=== PATIENT | female | born 2000 | race Caucasian/White ===

== ENCOUNTER 2019-01-08 15:25 | Emergency (ER) | payer OTHER, BC, SELFPAY ==
[2019-01-08 15:38] VITALS: BP 120/82; PULSE 88; RESP 18; TEMP 36.7; O2SAT 100; BMI 28.1
--- NOTE | 2019-01-08 17:43 | DI.RAD.S_ITS ---
PROCEDURE: XR HAND RT 2V INDICATIONS: injury at work TECHNIQUE: 2 views of the hand(s) acquired. COMPARISON: None. FINDINGS: Bones: No fractures or dislocations. Carpal bones are normally aligned. No suspicious bony lesions. Soft tissues: No suspicious soft tissue calcifications. IMPRESSION: No fracture. No osseous lesion. If there are persistent symptoms or clinical suspicion for pathology, then repeat radiographs or advanced imaging (CT, MRI or bone scan) should be considered for further evaluation. Dictated by: Essence Justice MD, PhD on 01/08/2019 at 18:16 Approved by: Essence Justice MD, PhD on 01/08/2019 at 18:17
[2019-01-08 20:50] VITALS: BP 131/96; PULSE 89; RESP 15; O2SAT 100
--- NOTE | 2019-01-08 20:59 | ED_ITS ---
HPI - Extremity Injury (Upper) <SHIRLEY Jain - Last Filed: 01/08/19 21:16> General Chief Complaint: Extremity Injury, Upper Stated Complaint: righthand injury at work Time Seen by Provider: 01/08/19 20:40 Source: patient Mode of arrival: ambulatory Limitations: no limitations History of Present Illness HPI narrative: Patient is a 18-year-old female smoker with history of ADHD who presents with a chief complaint of right hand pain. 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 She complains of pain and swelling and is concerned about a fracture. She denies any numbness or tingling. She applied ice. She has not taken hsoi-kwv-oewgyvm medications for pain. She has no previous injuries to the area. Patient states that she was sent here from the walk-in clinic, and she is not sure why. Related Data Home Medications Medication Instructions Recorded Confirmed dextroamphetamine-amphetamine 20 mg PO QDAY #0 03/31/13 [Adderall] Allergies Allergy/AdvReac Type Severity Reaction Status Date / Time amoxicillin Allergy Severe Difficulty Verified 01/08/19 15:44 Breathing PENICILLIN Allergy Intermediate migraine Uncoded 01/08/19 15:43 Review of Systems <SHIRLEY Jain - Last Filed: 01/08/19 21:16> Review of Systems GENERAL: Denies chills, fatigue, malaise, fever, sweats. HEENT: Denies sinus pain, ear pain, sore throat, difficulty swallowing, dizziness. RESPIRATORY: Denies dyspnea, cough, wheezing, hemoptysis, sputum. CARDIOVASCULAR: Denies chest pain, palpitations, orthopnea, edema, GASTROINTESTINAL: Denies nausea, vomiting, abdominal pain, diarrhea, constipation, melena. : Denies dysuria, frequency, incontinence, hematuria, urinary retention. MUSCULOSKELETAL: See HPI SKIN: See HPI NEUROLOGIC: Denies weakness, headache, numbness, change in speech, confusion, seizures, incoordination. PSYCHIATRIC: No concerning psychosocial issues. 12 point review of systems is negative except for those stated above PFSH <SHIRLEY Jain - Last Filed: 01/08/19 21:16> Social History Smoking Status: Current every day smoker Social History Smoking Status: Current every day smoker Exam <TOM Jain-CANDY - Last Filed: 01/08/19 21:16> Narrative Exam Narrative: GENERAL: This is a well-nourished, well-developed patient, no acute distress HEAD: Atraumatic. Normocephalic. No temporal or scalp tenderness. EYES: Pupils equal round and reactive. Extraocular motions intact. No scleral icterus. No injection or drainage. ENT: Nose without bleeding, purulent drainage or septal hematoma. Throat without erythema, tonsillar hypertrophy or exudate. Uvula midline. Airway patent. NECK: Trachea midline. No JVD or lymphadenopathy. Supple, nontender, no meningeal signs. CARDIOVASCULAR: Regular rate and rhythm RESPIRATORY: No cough. No increased respiratory effort. EXTREMITIES: Pain to palpation of right hand. Strength of hands equal bilaterally. Capillary refill less than 2 sec all fingers right hand. BACK: Nontender without deformity or crepitance. No flank tenderness. NEURO: AOx3. SKIN: 3 cm area of ecchymosis noted on the dorsal aspect of right hand. Initial Vital Signs Initial Vital Signs: Vital Signs Temperature 98.1 F 01/08/19 15:38 Pulse Rate 88 01/08/19 15:38 Respiratory Rate 18 01/08/19 15:38 Blood Pressure 120/82 01/08/19 15:38 Pulse Oximetry 100 01/08/19 15:38 <Keshia Lang DO - Last Filed: 01/09/19 02:30> Initial Vital Signs Initial Vital Signs: Vital Signs Temperature 98.1 F 01/08/19 15:38 Pulse Rate 88 01/08/19 15:38 Respiratory Rate 18 01/08/19 15:38 Blood Pressure 120/82 01/08/19 15:38 Pulse Oximetry 100 01/08/19 15:38 Course <TOM Jain-BC - Last Filed: 01/08/19 21:16> Orders Ordered: ED Orders 01/08/19 17:43 XR hand RT 2V Stat Vital Signs - 8 hr 01/08/19 20:50 Pulse Rate 89 Respiratory Rate 15 Blood Pressure [Left Arm] 131/96 H Pulse Oximetry 100 <Keshia Lang DO - Last Filed: 01/09/19 02:30> Orders Ordered: ED Orders 01/08/19 17:43 XR hand RT 2V Stat Vital Signs - 8 hr 01/08/19 20:50 Pulse Rate 89 Respiratory Rate 15 Blood Pressure [Left Arm] 131/96 H Pulse Oximetry 100 [facility] - Extremity Injury (Upper) <RAGHAVENDRA Jain - Last Filed: 01/08/19 21:16> Imaging Data hand xray : Radiologist's impression: [address] [address] XRay Report Signed Patient: Dayna Buckner [facility]#: [id number] : 2000Acct:[id number] Age/Sex: 18 / FDate of Service: 01/08/19 Loc: ED Accession Number: [id number] Procedure: XR hand RT 2V Ordering Provider: Venita Brandon PROCEDURE: XR HAND RT 2V INDICATIONS: injury at work TECHNIQUE: 2 views of the hand(s) acquired. COMPARISON: None. FINDINGS: Bones: No fractures or dislocations. Carpal bones are normally aligned. No suspicious bony lesions. Soft tissues: No suspicious soft tissue calcifications. IMPRESSION: No fracture. No osseous lesion. If there are persistent symptoms or clinical suspicion for pathology, then repeat radiographs or advanced imaging (CT, MRI or bone scan) should be considered for further evaluation. Dictated by: Essence Justice MD, PhD on 01/08/2019 at 18:16 Approved by: Essence Justice MD, PhD on 01/08/2019 at 18:17 [facility] Narrative Medical decision making narrative: The patient is a 18-year-old female who presents with chief complaint of hand pain after an accident at work. She has a normal hand x-ray, it is noted to have a contusion on the back of her hand. I discussed at length bihl-vvc-lfstwyj medications as needed and able as well as rest ice compression elevation. Patient was offered pain medication in the emergency department, but she states she can take that when she gets home. I discussed follow-up with primary care provider if needed. Patient questions or concerns upon discharge. L and I paperwork filled out. Discharge Plan Departure Patient Disposition: Home Clinical Impression: Contusion Qualifiers: Encounter type: initial encounter Contusion area: hand Laterality: right Qualified Code(s): S60.221A - Contusion of right hand, initial encounter Hand pain Qualifiers: Laterality: right Qualified Code(s): M79.641 - Pain in right hand Discharge Date/Time: 01/08/19 20:55 Interventions: ED Discharge Assessment Last Done: 01/08/19 20:53 Instructions: DI for Contusion, How To Perform RICE (Rest, Ice, Compress, Elevate), DI for Hand Pain Activity Restrictions/Additional Instructions: Your x-ray came back normal today. Please take gqma-kdz-ioeoyfr medications as needed and able. Please use rest ice compression elevation. Please follow up with your primary care provider if needed. Prescriptions: No Action dextroamphetamine-amphetamine [Adderall] 20 MG tablet 20 mg PO QDAY Qty: 0 RF: 0 <Keshia Lang DO - Last Filed: 01/09/19 02:30> Cosrk ED Attending Saraature Attestation: I was immediately available in the department for consultation. Documentation has been reviewed. I agree with assessment and plan.
== END 2019-01-08 20:55 | disposition home or self-care (01) ==
PROVIDERS: Emergency Provider Nurse Practitioner Family
DX: S60.221A Contusion of right hand, initial encounter (principal); W22.8XXA Striking against or struck by other objects, initial encounter; Y99.0 Civilian activity done for income or pay
CPT/HCPCS: 73120; 99282; 99283

== ENCOUNTER → 2021-09-21 09:51 | Outpatient (CLI) | payer OTHER, SELFPAY ==
--- NOTE | 2021-09-21 09:54 | DI.RAD.S_ITS ---
PROCEDURE: XR ANKLE RT MIN 3V INDICATIONS: R ankle pain, injury while running TECHNIQUE: 3 views of the ankle were acquired. COMPARISON: [facility], , ANKLE 3 VIEWS LEFT, 04/01/2016, 12:04. FINDINGS: Bones: No fractures or dislocations. Ankle mortise is normally aligned. No suspicious bony lesions. The talar dome demonstrates no mele abnormality. Soft tissues: No tibiotalar joint effusion. Achilles tendon appears normal. IMPRESSION: Normal plain films. If it would be helpful for clinical management decision making, please consider a dedicated, scheduled ankle MRI for further evaluation (assuming that there is no contraindication). Dictated by: Fernando Mcwilliams M.D. on 09/21/2021 at 9:20 Approved by: Fernando Mcwilliams M.D. on 09/21/2021 at 9:22
== END ==
PROVIDERS: PCP Family Medicine; Referring Provider Physician Assistant; Visit Provider Physician Assistant
DX: S99.911A Unspecified injury of right ankle, initial encounter (principal); M25.571 Pain in right ankle and joints of right foot; X58.XXXA Exposure to other specified factors, initial encounter; Y93.02 Activity, running
CPT/HCPCS: 73610

== ENCOUNTER 2021-11-17 15:06 | Emergency (ER) | payer OTHER, SELFPAY ==
[2021-11-17 15:10] VITALS: BP 151/79; PULSE 89; RESP 22; TEMP 36.9; O2SAT 100
--- NOTE | 2021-11-17 15:13 | DI.RAD.S_ITS ---
PROCEDURE: XR ANKLE RT MIN 3V INDICATIONS: twisting injury TECHNIQUE: 3 views of the ankle were acquired. COMPARISON: [facility], CR, XR ANKLE RT MIN 3V, 09/21/2021, 9:50. [facility], CR, ANKLE 3 VIEWS LEFT, 04/01/2016, 12:04. FINDINGS: Bones: No fractures or dislocations. Ankle mortise is normally aligned. No suspicious bony lesions. Soft tissues: No tibiotalar joint effusion. Achilles tendon appears normal. IMPRESSION: No acute osseous abnormality. Dictated by: Tien Bolton M.D. on 11/17/2021 at 15:47 Approved by: Tien Bolton M.D. on 11/17/2021 at 15:47
--- NOTE | 2021-11-17 15:20 | ED.LOWEXIN ---
HPI - Extremity Injury (Lower) General Chief Complaint: Extremity Injury, Lower Stated Complaint: Fall, Twisted Rt Ankle Time Seen by Provider: 11/17/21 15:20 Source: patient Mode of arrival: Ambulatory History of Present Illness HPI Narrative: 21-year-old woman with no other significant medical issues was running this afternoon and twisted her right ankle with pain at the medial malleolus and difficulty walking. She comes in for further evaluation. She describes no recent fevers, cough, chills, abdominal pain, vomiting, diarrhea. She states she has had prior musculoskeletal injuries but has been healthy recently. Related Data Home Medications Medication Instructions Recorded Confirmed dextroamphetamine-amphetamine 20 20 mg PO QDAY #0 03/31/13 09/21/21 mg tablet (Adderall) Allergies Allergy/AdvReac Type Severity Reaction Status Date / Time amoxicillin Allergy Severe Difficulty Verified 01/08/19 15:44 Breathing PENICILLIN Allergy Intermediate migraine Uncoded 01/08/19 15:43 Review of Systems Review of Systems Narrative: Remainder of complete review of systems is otherwise unremarkable except for that included in the HPI. Patient History Social History Smoking Status: Former smoker Smoking Status: Former smoker alcohol intake frequency: 0-2 drinks per day Substance Use Type: does not use Exam Initial Vital Signs Initial Vital Signs: Vital Signs Temperature 98.4 F 11/17/21 15:10 Pulse Rate 89 11/17/21 15:10 Respiratory Rate 22 11/17/21 15:10 Blood Pressure 151/79 H 11/17/21 15:10 Pulse Oximetry 100 11/17/21 15:10 General: Alert appropriate in no acute distress Respiratory: Able to speak in full sentences, no obvious respiratory distress Skin: No obvious rashes, warm and dry Neurologic: Grossly intact no obvious asymmetries or abnormalities Psych: appropriate insight and affect, cooperative Extremity: Of right ankle is examined there is some minor tenderness along the medial malleolus him into the medial aspect of the ankle and arch of the foot. There is no significant effusions, abrasions or hematoma. Neurovascularly intact. Procedures Orthopedic Splinting/Casting Right ankle: Time of procedure: 16:37 Side: right Lower Extremity Injury Location: ankle Lower Extremity Immobilizer: AirCast Post splinting neuro exam: intact Post splinting vascular exam: intact Placed by: Provider Course Orders Ordered: ED Orders 11/17/21 15:13 XR ankle RT min 3V Stat Vital Signs Vital signs: Vital Signs - 8 hr 11/17/21 15:10 Temperature 98.4 F Pulse Rate 89 Respiratory Rate 22 Blood Pressure 151/79 H Pulse Oximetry 100 MDM - Extremity Injury (Lower) MDM Narrative Medical decision making narrative: Otherwise healthy 21-year-old woman who twisted her ankle while running. She is having difficulty bearing weight and did have some tenderness on the medial malleolus. X-rays are negative. She is placed in an air splint and anticipatory guidance instructions are reviewed. Questions are answered and she is safe for home discharge Discharge Plan Departure Patient Disposition: Home Clinical Impression: Ankle sprain and strain Instructions: DI for Ankle Sprain Activity Restrictions/Additional Instructions: Thank you for coming in today Your x-ray does not show any broken bones. I have given you an air splint to help with supporting your ankle. Using ice keeping the foot elevated as needed the air splint as long as it feels like it is providing support and using 400 mg of ibuprofen (2 tozw-trt-cicglbm pills) and 1 Tylenol every 6 hours can be very helpful in controlling pain. If you have worsening symptoms please feel free to follow-up with your primary care provider or return to the emergency department Prescriptions: No Action dextroamphetamine-amphetamine [Adderall] 20 MG tablet 20 mg PO QDAY Qty: 0 0RF Referrals: Glenn Clark MD [Primary Care Provider] -
== END 2021-11-17 16:31 | disposition home or self-care (01) ==
PROVIDERS: Emergency Provider Emergency Medicine; PCP Family Medicine
DX: S93.401A Sprain of unspecified ligament of right ankle, initial encounter (principal); X50.1XXA Overexertion from prolonged static or awkward postures, initial encounter; Y93.02 Activity, running
CPT/HCPCS: 73610; 99283

== ENCOUNTER → 2023-11-27 09:57 | Outpatient (ROUT) | payer SELFPAY ==
[2023-11-27 10:44] LABS: Influenza A - CEPHEID Flu A NEGATIVE (NEGATIVE); Influenza B - CEPHEID Flu B NEGATIVE (NEGATIVE); Respiratory Syncytial Virus Negative (Negative)
[2023-11-27 12:18] LABS: COVID-19 CEPHEID 4-PLEX PCR Negative (Negative)
== END ==
PROVIDERS: Visit Provider Registered Nurse
DX: R05.9 Cough, unspecified (principal)
CPT/HCPCS: 0241U

== ENCOUNTER 2023-12-23 20:25 | Emergency (ER) | payer OTHER, SELFPAY ==
[2023-12-23 20:36] VITALS: BP 149/102; PULSE 84; RESP 16; TEMP 36.8; O2SAT 98; BMI 25.6
--- NOTE | 2023-12-23 20:44 | DI.RAD.S_ITS ---
PROCEDURE: XR FOOT LT MIN 3V INDICATIONS: pain s/p fall TECHNIQUE: 3 views of the foot were acquired. COMPARISON: [facility], , FOOT 3V LEFT, 04/07/2013, 15:44. FINDINGS: Bones: No fractures or dislocations. No suspicious bony lesions. Soft tissues: No tibiotalar joint effusion. Achilles tendon appears normal. IMPRESSION: No acute bony abnormality. Dictated by: Stevenson Badillo M.D. on 12/23/2023 at 21:44 Approved by: Stevenson Badillo M.D. on 12/23/2023 at 21:45
[2023-12-23] MEDS: IBUPROFEN 400 MG TABLET 800 MG PO (21:38)
--- NOTE | 2023-12-23 22:03 | ED_ITS ---
HPI - Fall General Chief Complaint: Fall Stated Complaint: lt foot, rt hip injury Time Seen by Provider: 12/23/23 21:18 Source: patient Mode of arrival: Ambulatory History of Present Illness HPI Narrative: 23-year-old female here for evaluation of a left foot injury and right hip injury. She states that she tripped and fell down some stairs. States that her left foot got caught up underneath her. She did hit her right hip. Has been ambulatory however has discomfort on the outside of the left foot. She did not hit her head. No loss of consciousness. Related Data Home Medications Medication Instructions Recorded Confirmed dextroamphetamine-amphetamine 20 20 mg PO QDAY ##0 03/31/1309/21/ mg tablet (Adderall) Allergies Allergy/AdvReac Type Severity Reaction Status Date / Time amoxicillin Allergy Severe Difficulty Verified 12/23/23 20:55 Breathing PENICILLIN Allergy Intermediate migraine Uncoded 12/23/23 20:55 Review of Systems Musculoskeletal Musculoskeletal: Reports system reviewed and no additional complaints, except as documented Integumentary/Breasts Skin/Breast: Reports system reviewed and no additional complaints, except as documented Patient History Social History Smoking Status: Current every day smoker Smoking Status: Current every day smoker tobacco type: vaping alcohol intake frequency: 0-2 drinks per day Substance Use Type: does not use Exam Initial Vital Signs Initial Vital Signs: Vital Signs Temperature 98.3 F 12/23/23 20:36 Pulse Rate 84 12/23/23 20:36 Respiratory Rate 16 12/23/23 20:36 Blood Pressure 149/102 H 12/23/23 20:36 Pulse Oximetry 98 12/23/23 20:36 Oxygen Delivery Method Room Air 12/23/23 20:36 Skin Other: Slight bruising to the dorsum/lateral aspect of the left foot. Extrem Other: Achilles tendon is intact. Minimal tenderness along the medial malleolus. Minimal tenderness along the lateral malleolus. Minimal tenderness along base of the 5th metatarsal. Does have tenderness along the anterior tibiotalar joint line. No tenderness over the Lisfranc joint Procedures Orthopedic Splinting/Casting Injury #1: Side: left Lower Extremity Injury Location: ankle Lower Extremity Immobilizer: Carlos wrap Course Orders Ordered: ED Orders 12/23/23 20:44 XR foot LT min 3V Stat Discontinued Medications Ibuprofen (Ibuprofen 400 Mg Tablet) 800 mg PO NOW ONE Stop: 12/23/23 21:35 Last Admin: 12/23/23 21:38 Dose: 800 mg Documented By: KRISTINA Vital Signs Vital signs: Vital Signs - 8 hr 12/23/23 20:36 12/23/23 22:19 Temperature 98.3 F Pulse Rate 84 67 Respiratory Rate 16 17 Blood Pressure 149/102 H 123/84 Pulse Oximetry 98 99 Oxygen Delivery Method Room Air Room Air MDM - Fall Imaging Data Extremity x-ray #1: Radiologist's Impression: PROCEDURE: XR FOOT LT MIN 3V INDICATIONS: pain s/p fall TECHNIQUE: 3 views of the foot were acquired. COMPARISON: [facility], , FOOT 3V LEFT, 04/07/2013, 15:44. FINDINGS: Bones: No fractures or dislocations. No suspicious bony lesions. Soft tissues: No tibiotalar joint effusion. Achilles tendon appears normal. IMPRESSION: No acute bony abnormality. [facility] Narrative Medical decision making narrative: Neurovascularly intact. No fractures on the x-rays. States she does feel somewhat better after placement of the Carlos bandage. Ambulation as tolerated. Conservative measures to include ice and anti-inflammatories. Return precautions given Discharge Plan Departure Patient Disposition: Home Clinical Impression: Left ankle sprain Instructions: DI for Ankle Sprain, How To Perform RICE (Rest, Ice, Compress, Elevate), How to Apply an Elastic Wrap on Ankle Activity Restrictions/Additional Instructions: No fractures were noted on the x-rays so you can walk on your left foot as tolerated. Keep your foot elevated and use ice. Return to the emergency department for new symptoms. Prescriptions: No Action dextroamphetamine-amphetamine [Adderall] 20 MG tablet 20 mg PO QDAY Qty: 0 Referrals: Glenn Clark MD [Primary Care Provider] - Stand Alone Forms: Patient Portal/API, Work Release Note
[2023-12-23 22:19] VITALS: BP 123/84; PULSE 67; RESP 17; O2SAT 99
== END 2023-12-23 22:21 | disposition home or self-care (01) ==
PROVIDERS: Emergency Provider Emergency Medicine; PCP Family Medicine
DX: S93.602A Unspecified sprain of left foot, initial encounter (principal); W01.0XXA Fall on same level from slipping, tripping and stumbling without subsequent striking against object, initial encounter
CPT/HCPCS: 73630; 99283

== ENCOUNTER → 2024-07-30 16:03 | Outpatient (CLI) | payer OTHER, SELFPAY | PROVIDERS: PCP Family Medicine; Referring Provider Internal Medicine; Visit Provider Internal Medicine | DX: Z23 Encounter for immunization (principal) | CPT/HCPCS: 90471; 90656 ==

== ENCOUNTER 2024-09-30 20:18 | Emergency (ER) | payer OTHER, SELFPAY ==
[2024-09-30 20:26] VITALS: BP 137/86; PULSE 79; O2SAT 98
--- NOTE | 2024-09-30 20:27 | ED_ITS ---
HPI - Abdominal Pain General Chief Complaint: Abdominal Pain Stated Complaint: Abd Pain Time Seen by Provider: 09/30/24 20:26 History of Present Illness HPI narrative: Patient is a 24-year-old female with no significant past medical history comes into the ED from home for evaluation of right lower quadrant abdominal pain, nausea vomiting, states it started spontaneously earlier today, nothing make it better or worse, no other complaints such as headache visual disturbances chest pain shortness breath fever chills or any other GI/ symptoms. No trauma no falls, recent sick contacts no recent travel Related Data Home Medications Medication Instructions Recorded Confirmed dextroamphetamine-amphetamine 20 20 mg PO QDAY ##0 03/31/1309/21/ mg tablet (Adderall) Previous Rx's Medication Instructions Recorded dicyclomine 10 mg capsule 10 mg PO BID 1 week #14 caps 09/30/24 ondansetron 4 mg disintegrating 4 mg PO Q8H PRN nausea and 09/30/24 tablet vomiting 5 days #15 tabs Allergies Allergy/AdvReac Type Severity Reaction Status Date / Time amoxicillin Allergy Severe Difficulty Verified 12/24/23 09:52 Breathing PENICILLIN Allergy Intermediate migraine Uncoded 12/24/23 09:52 Review of Systems Review of Systems Narrative: General: Denies fever, chills, weight loss HEENT: Denies headache, eye drainage, eye irritation, head trauma, sore throat, voice change Cardiovascular: Denies any chest pain, palpitations, shortness of breath, tachycardia Respiratory: Denies any shortness of breath, cough, wheeze, stridor GI/: Positive abdominal pain, nausea, vomiting, diarrhea, denies bright red blood per rectum, melanotic stools, urinary frequency, urinary retention, dysuria, hematuria MSK: Denies any joint pain, muscle pains, swelling Skin: Denies any rashes, lesions, discoloration Neuro: Denies any headache, lightheadedness, dizziness, fainting, weakness Psych: Denies SI/HI Patient History Social History (System 12/24/23 @ 09:52 by Radha Tello) Smoking Status: Current every day smoker Smoking Status: Current every day smoker tobacco type: vaping alcohol intake frequency: 0-2 drinks per day Exam Narrative Exam Narrative: General: Cooperative, comfortable, well-developed, not in acute distress HEENT: Normocephalic, atraumatic, PERRLA, normal sclera, eyelids normal, Neck: Active full range of motion, atraumatic Chest: Normal to inspection, negative crepitus, no overlying erythema ecchymosis Respiratory: Normal respiratory effort, not in acute respiratory distress, clear to auscultation bilaterally negative cough, wheeze, tachypnea, rhonchi, rales Cardiology: Regular rate rhythm negative gallop, murmur, rubs GI/: Normal to inspection, soft, nonrigid, minor tenderness to palpation right lower quadrant, exam deferred MSK: Full range of active range of motion of all 4 extremities, atraumatic Skin: No rashes lesions noted Neuro: Alert awake oriented x3, moves all 4 extremities spontaneously, cranial nerves intact, able to answer all questions appropriately follows commands appropriately Psych: Cooperative, negative suicidal or homicidal ideations Initial Vital Signs Initial Vital Signs: Vital Signs Pulse Rate 79 09/30/24 20:26 Blood Pressure 137/86 09/30/24 20:26 Pulse Oximetry 98 09/30/24 20:26 Course Orders Ordered: ED Orders 09/30/24 20:33 CT abdomen pelvis w con Stat 09/30/24 20:45 Complete Blood Count AUTO DIFF Stat Comprehensive Metabolic Panel Stat Lipase Stat Discontinued Medications Ketorolac Tromethamine (Ketorolac 30 Mg/Ml Vial) 15 mg IV NOW ONE Stop: 09/30/24 20:34 Last Admin: 09/30/24 20:57 Dose: 15 mg Documented By: JES Ondansetron HCl (Ondansetron 4 Mg/2 Ml Inj) 4 mg IV NOW ONE Stop: 09/30/24 20:34 Last Admin: 09/30/24 20:57 Dose: 4 mg Documented By: JES Vital Signs Vital signs: Vital Signs - 8 hr 09/30/24 20:26 09/30/24 20:26 09/30/24 20:29 Temperature 97.5 F L Pulse Rate 79 98 H Respiratory Rate 16 Blood Pressure 137/86 137/86 Pulse Oximetry 98 99 Oxygen Delivery Method Room Air 09/30/24 20:30 09/30/24 20:30 Temperature Pulse Rate 72 Respiratory Rate Blood Pressure 119/80 Pulse Oximetry 96 Oxygen Delivery Method MDM - Abdominal Pain Differential Diagnosis Differential diagnosis: Likely abdominal pain, acute appendicitis, constipation, diverticulitis and small bowel obstruction Lab Data 09/30/24 20:45 09/30/24 20:45 Labs: Lab Results 09/30/24 Range/Units 20:45 WBC 8.6 (4.5-11.0) X10^3/uL RBC 3.96 L (4.0-5.2) X10^6/uL Hgb 12.2 (12.0-16.0) g/dL Hct 37.2 (36-46) % MCV 93.8 (80-100) fL MCH 30.9 (26-34) PG MCHC 32.9 (30-36) % RDW 12.6 (11.6-14.8) % Plt Count 351 (150-400) X10^3/uL Neut % (Auto) 58.6 (50-75) % Lymph % (Auto) 31.4 (25-40) % Cook % (Auto) 7.5 (3-14) % Eos % (Auto) 1.5 L (2-4) % Baso % (Auto) 1.0 (0-2) % Neut # (Auto) 5100 (4910-5013) /uL Lymph # (Auto) 2700 (0560-8933) /uL Cook # (Auto) 600 (0-900) /uL Eos # (Auto) 100 (0-450) /uL Baso # (Auto) 100 (0-100) /uL Sodium 136 L (137-145) mmol/L Potassium 3.7 (3.4-5.1) mmol/L Chloride 106 (98-107) mmol/L Carbon Dioxide 24 (22-32) mmol/L BUN 12 (7-17) mg/dL Creatinine 0.62 (0.52-1.04) mg/dL Estimated GFR > 60 (>60) mL/min BUN/Creatinine Ratio 19.4 (6-22) Glucose 93 (70-100) mg/dL Calcium 9.3 (8.4-10.2) mg/dL Total Bilirubin 0.6 (0.2-1.3) mg/dL AST 26 (14-36) IU/L ALT 26 (<35) IU/L Alkaline Phosphatase 66 (38-126) U/L Total Protein 7.3 (6.3-8.2) g/dL Albumin 4.2 (3.5-5.0) g/dL Globulin 3.1 (1.7-4.1) g/dL Albumin/Globulin Ratio 1.4 (1.0-2.8) Lipase 51 (23-300) U/L Point of care testing: Point of Care Testing Test Results Negative Urine Dip Bedside Urine Glucose Negative Bedside Urine Bilirubin - Negative Bedside Urine Ketone - Negative Urine Specific Century 1.025 Bedside Urine Occult Blood - Negative Bedside Urine pH 6 Bedside Urine Protein - Negative Bedside Urine Urobilinogen - Negative Bedside Urine Nitrite - Negative Bedside Urine Leukocytes - Negative Esterase Imaging Data CT scan - abdomen/pelvis: Radiologist's Impression: [address] [address] [address] Scan Report Signed Patient: Dayna Buckner MR#: [id number] : 2000 Acct:[id number] Age/Sex: 24 / F Date of Service: 09/30/24 Loc: ED Accession Number: [id number] Procedure: CT abdomen pelvis w con Ordering Provider: Adi Swanson D.O. PROCEDURE: CT ABDOMEN PELVIS W CON INDICATIONS: RLQ abd pain TECHNIQUE: After the administration of intravenous contrast, axial sections acquired from the lung bases to the pubic symphysis. Coronal and sagittal reformats were performed. For radiation dose reduction, the following was used: automated exposure control, adjustment of mA and/or kV according to patient size. COMPARISON: None. FINDINGS: Image quality: Diagnostic. Lower Chest: No significant findings. ABDOMEN: Liver: No solid mass. Gallbladder: No radiopaque gallstones or wall thickening. Biliary ducts: No biliary dilation. Pancreas: No ductal dilation. Spleen: Size is within normal limits. Adrenal Glands: No adrenal nodules. Kidneys and Ureters: No hydronephrosis. No solid mass. No complex renal cystic lesion which requires follow up. Stomach and Bowel: Normal colonic caliber, without significant wall thickening. The appendix is not definitively seen. However, no inflammatory changes are seen around the cecum. Peritoneum: No abnormal intraperitoneal fluid. No free air. Ventral Wall: No significant ventral hernia. Abdominal Nodes: No retroperitoneal or mesenteric adenopathy by size criteria. Vessels: Aorta and inferior vena cava are normal in size. PELVIS: Pelvic Organs: Intrauterine device in place. Bladder: No bladder wall thickening, accounting for underdistention. Pelvic Nodes: No enlarged lymph nodes. Miscellaneous: No inguinal hernias are seen. Bones: No aggressive osseous abnormality. IMPRESSION: No acute findings within the abdomen or pelvis. The appendix is not definitively seen, however no pericecal inflammation is identified. Dictated by: Stevenson Badillo M.D. on 09/30/2024 at 21:14 Approved by: Setvenson Badillo M.D. on 09/30/2024 at 21:19 [facility] Narrative Medical decision making narrative: Patient 24-year-old female no significant past medical history presenting of right lower quadrant abdominal pain nausea vomiting started earlier today, nothing making it better or worse, patient did have CT scan as well as urinalysis performed here in the emergency department. Patient had urinalysis performed here in the emergency department not consistent with acute urinary tract infection, CT scan without any signs of acute findings, lab work unremarkable, patient repeat exam is non peritoneal nontoxic she will be safe for discharge home with outpatient follow up Discharge Plan Departure Patient Disposition: Home Clinical Impression: Abdominal pain Activity Restrictions/Additional Instructions: Please read the discharge instructions sheet carefully and bring all papers to all doctor follow-up visits, as it may contain information that your doctor may want to see. Disease processes change and evolve, if your symptoms worsen or if you develop any new symptoms that are concerning to you please return for evaluation. Your evaluation today does not show any evidence of any life- threatening/serious illnesses requiring admission to the hospital or surgery. Please follow-up with your doctor for re-evaluation in approximately 1 day. Seek immediate medical attention for any worrisome symptoms. Prescriptions: New dicyclomine 10 mg capsule 10 mg PO BID 7 Days Qty: 14 0RF ondansetron 4 mg tablet,disintegrating 4 mg PO Q8H PRN (Reason: nausea and vomiting) 5 Days Qty: 15 0RF No Action dextroamphetamine-amphetamine [Adderall] 20 MG tablet 20 mg PO QDAY Qty: 0 Referrals: Glenn Clark MD [Primary Care Provider] - Stand Alone Forms: Patient Portal/API/Survey
[2024-09-30 20:29] VITALS: BP 137/86; PULSE 98; RESP 16; TEMP 36.4; O2SAT 99; BMI 30.2
[2024-09-30 20:30] VITALS: BP 119/80; PULSE 72; O2SAT 96
--- NOTE | 2024-09-30 20:33 | DI.CT.S_ITS ---
PROCEDURE: CT ABDOMEN PELVIS W CON INDICATIONS: RLQ abd pain TECHNIQUE: After the administration of intravenous contrast, axial sections acquired from the lung bases to the pubic symphysis. Coronal and sagittal reformats were performed. For radiation dose reduction, the following was used: automated exposure control, adjustment of mA and/or kV according to patient size. COMPARISON: None. FINDINGS: Image quality: Diagnostic. Lower Chest: No significant findings. ABDOMEN: Liver: No solid mass. Gallbladder: No radiopaque gallstones or wall thickening. Biliary ducts: No biliary dilation. Pancreas: No ductal dilation. Spleen: Size is within normal limits. Adrenal Glands: No adrenal nodules. Kidneys and Ureters: No hydronephrosis. No solid mass. No complex renal cystic lesion which requires follow up. Stomach and Bowel: Normal colonic caliber, without significant wall thickening. The appendix is not definitively seen. However, no inflammatory changes are seen around the cecum. Peritoneum: No abnormal intraperitoneal fluid. No free air. Ventral Wall: No significant ventral hernia. Abdominal Nodes: No retroperitoneal or mesenteric adenopathy by size criteria. Vessels: Aorta and inferior vena cava are normal in size. PELVIS: Pelvic Organs: Intrauterine device in place. Bladder: No bladder wall thickening, accounting for underdistention. Pelvic Nodes: No enlarged lymph nodes. Miscellaneous: No inguinal hernias are seen. Bones: No aggressive osseous abnormality. IMPRESSION: No acute findings within the abdomen or pelvis. The appendix is not definitively seen, however no pericecal inflammation is identified. Dictated by: Stevenson Badillo M.D. on 09/30/2024 at 21:14 Approved by: Stevenson Badillo M.D. on 09/30/2024 at 21:19
[2024-09-30 20:51] LABS: Add Manual Diff / Slide Review NO; Basophils Absolute Auto 100 /uL (0-100); Eosinophils Absolute Auto 100 /uL (0-450); Eosinophils Percent Auto 1.5 % (2-4); Hematocrit 37.2 % (36-46); Hemoglobin 12.2 g/dL (12.0-16.0); Lymphocytes Absolute Auto 2700 /uL (1100-4500); Lymphocytes Percent Auto 31.4 % (25-40); Mean Corpuscular HGB Conc 32.9 % (30-36); Mean Corpuscular Hemoglobin 30.9 PG (26-34); Mean Corpuscular Volume 93.8 fL (80-100); Monocytes Absolute Auto 600 /uL (0-900); Monocytes Percent Auto 7.5 % (3-14); Neutrophils Absolute Auto 5100 /uL (1500-7000); Neutrophils Percent Auto 58.6 % (50-75); Platelet Count 351 X10^3/uL (150-400); Red Blood Cell Count 3.96 X10^6/uL (4.0-5.2); Red Cell Distribution Width 12.6 % (11.6-14.8); White Blood Cell Count 8.6 X10^3/uL (4.5-11.0)
[2024-09-30] MEDS: KETOROLAC 30 MG/ML VIAL 15 MG IV (20:57)
[2024-09-30] MEDS: ONDANSETRON 4 MG/2 ML INJ IV (20:57)
[2024-09-30 21:02] LABS: Alanine Aminotransferase 26 IU/L (<35); Albumin 4.2 g/dL (3.5-5.0); Albumin Globulin Ratio 1.4 (1.0-2.8); Alkaline Phosphatase 66 U/L (38-126); Aspartate Aminotransferase 26 IU/L (14-36); BUN Creatinine Ratio 19.4 (6-22); Bilirubin Total 0.6 mg/dL (0.2-1.3); Blood Urea Nitrogen 12 mg/dL (7-17); Calcium 9.3 mg/dL (8.4-10.2); Carbon Dioxide 24 mmol/L (22-32); Chloride 106 mmol/L (98-107); Estimated Glomerular Filt Rate > 60 mL/min (>60); Globulin 3.1 g/dL (1.7-4.1); Glucose 93 mg/dL (70-100); HEMOLYSIS < 15 (0-50); Lipase 51 U/L (23-300); Potassium 3.7 mmol/L (3.4-5.1); Sodium 136 mmol/L (137-145); Total Protein 7.3 g/dL (6.3-8.2)
[2024-09-30 22:00] VITALS: BP 114/73; PULSE 62; O2SAT 98
== END 2024-09-30 22:04 | disposition home or self-care (01) ==
PROVIDERS: Emergency Provider Student in an Organized Health Care Education/Training Program; PCP Family Medicine
DX: R10.31 Right lower quadrant pain (principal); R11.2 Nausea with vomiting, unspecified
CPT/HCPCS: 36415; 74177; 80053; 81003; 81025; 83690; 85025; 96374; 96375; 99284; J1885; J2405; Q9967

== ENCOUNTER 2024-10-05 16:23 | Emergency (ER) | payer OTHER, SELFPAY ==
[2024-10-05 16:29] VITALS: BP 131/83; PULSE 77; O2SAT 99
[2024-10-05 16:30] VITALS: BP 131/86; PULSE 75; PULSE 83; RESP 16; TEMP 36.6; O2SAT 97; O2SAT 99; BMI 30.7
[2024-10-05 16:38] VITALS: BP 129/71; PULSE 76; O2SAT 99
[2024-10-05] MEDS: ONDANSETRON 4 MG/2 ML INJ IV (16:49)
[2024-10-05 16:51] LABS: Add Manual Diff / Slide Review NO; Basophils Absolute Auto 100 /uL (0-100); Basophils Percent Auto 0.6 % (0-2); Eosinophils Absolute Auto 100 /uL (0-450); Eosinophils Percent Auto 1.5 % (2-4); Hematocrit 42.1 % (36-46); Hemoglobin 13.8 g/dL (12.0-16.0); Lymphocytes Absolute Auto 2500 /uL (1100-4500); Lymphocytes Percent Auto 24.9 % (25-40); Mean Corpuscular HGB Conc 32.9 % (30-36); Mean Corpuscular Hemoglobin 31.1 PG (26-34); Mean Corpuscular Volume 94.5 fL (80-100); Monocytes Absolute Auto 700 /uL (0-900); Monocytes Percent Auto 6.6 % (3-14); Neutrophils Absolute Auto 6700 /uL (1500-7000); Neutrophils Percent Auto 66.4 % (50-75); Platelet Count 402 X10^3/uL (150-400); Red Blood Cell Count 4.45 X10^6/uL (4.0-5.2); Red Cell Distribution Width 12.7 % (11.6-14.8); White Blood Cell Count 10.1 X10^3/uL (4.5-11.0)
--- NOTE | 2024-10-05 16:52 | ED.GENADULT ---
HPI - General Adult General Chief complaint: Abdominal Pain Stated complaint: abd pain Time Seen by Provider: 10/05/24 16:34 Source: patient Mode of arrival: Ambulatory Limitations: no limitations History of Present Illness HPI narrative: 24-year-old female here for evaluation of epigastric and right upper quadrant abdominal discomfort. She was also having quite a bit of nausea. No change in bowel habits. No urinary symptoms. She was seen here in the emergency department a couple days ago for very similar symptoms. Had a unremarkable workup. CT scan was negative. Is scheduled to have an ultrasound of her gallbladder done tomorrow. She was here because of continued discomfort and nausea. Decreased oral intake secondary to the nausea. Related Data Home Medications Medication Instructions Recorded Confirmed dextroamphetamine-amphetamine 20 20 mg PO QDAY ##0 03/31/1309/21/ mg tablet (Adderall) Previous Rx's Medication Instructions Recorded dicyclomine 10 mg capsule 10 mg PO BID 1 week #14 caps 09/30/24 ondansetron 4 mg disintegrating 4 mg PO Q6H PRN nausea and 10/05/24 tablet vomiting #10 tabs Allergies Allergy/AdvReac Type Severity Reaction Status Date / Time amoxicillin Allergy Severe Difficulty Verified 12/24/23 09:52 Breathing PENICILLIN Allergy Intermediate migraine Uncoded 12/24/23 09:52 Review of Systems Review of Systems Narrative: See HPI Patient History Social History Smoking Status: Current every day smoker Smoking Status: Current every day smoker tobacco type: vaping alcohol intake frequency: 0-2 drinks per day Exam Initial Vital Signs Initial Vital Signs: Vital Signs Temperature 97.8 F 10/05/24 16:30 Pulse Rate 83 10/05/24 16:30 Respiratory Rate 16 10/05/24 16:30 Blood Pressure 131/86 10/05/24 16:30 Pulse Oximetry 97 10/05/24 16:30 Oxygen Delivery Method Room Air 10/05/24 16:30 Const General: cooperative and No ill appearing HENMT Head: normal to inspection and normocephalic Resp Effort & Inspection: normal respiratory effort Cardio Rate: regular rate GI Inspection: normal to inspection and non-distended Palpation: soft, No firm, No guarding and tender Neuro General: patient alert and patient awake Course Orders Ordered: ED Orders 10/05/24 16:37 Complete Blood Count AUTO DIFF Stat Comprehensive Metabolic Panel Stat Lipase Stat 10/05/24 16:53 US abdomen limited Stat Ondansetron HCl (Ondansetron 4 Mg/2 Ml Inj) 4 mg IV NOW PRN PRN Reason: Nausea And Vomiting Last Admin: 10/05/24 16:49 Dose: 4 mg Documented By: JES Ondansetron HCl (Ondansetron 4 Mg Odt) 4 mg PO NOW PRN PRN Reason: Nausea And Vomiting Vital Signs Vital signs: Vital Signs - 8 hr 10/05/24 16:30 Temperature 97.8 F Pulse Rate 83 Respiratory Rate 16 Blood Pressure 131/86 Pulse Oximetry 97 Oxygen Delivery Method Room Air Medical Decision Making Medical Records Medical records reviewed: Yes I reviewed the patient's medical records. Lab Data Lab results reviewed: Yes I reviewed the patient's lab results. 10/05/24 16:37 10/05/24 16:37 Labs: Lab Results 10/05/24 Range/Units 16:37 WBC 10.1 (4.5-11.0) X10^3/uL RBC 4.45 (4.0-5.2) X10^6/uL Hgb 13.8 (12.0-16.0) g/dL Hct 42.1 (36-46) % MCV 94.5 (80-100) fL MCH 31.1 (26-34) PG MCHC 32.9 (30-36) % RDW 12.7 (11.6-14.8) % Plt Count 402 H (150-400) X10^3/uL Neut % (Auto) 66.4 (50-75) % Lymph % (Auto) 24.9 L (25-40) % Beauregard % (Auto) 6.6 (3-14) % Eos % (Auto) 1.5 L (2-4) % Baso % (Auto) 0.6 (0-2) % Neut # (Auto) 6700 (5309-2746) /uL Lymph # (Auto) 2500 (7016-3191) /uL Bea[place]gard # (Auto) 700 (0-900) /uL Eos # (Auto) 100 (0-450) /uL Baso # (Auto) 100 (0-100) /uL Sodium 137 (137-145) mmol/L Potassium 4.0 (3.4-5.1) mmol/L Chloride 105 (98-107) mmol/L Carbon Dioxide 27 (22-32) mmol/L BUN 10 (7-17) mg/dL Creatinine 0.73 (0.52-1.04) mg/dL Estimated GFR > 60 (>60) mL/min BUN/Creatinine Ratio 13.7 (6-22) Glucose 117 H (70-100) mg/dL Calcium 9.6 (8.4-10.2) mg/dL Total Bilirubin 1.1 (0.2-1.3) mg/dL AST 31 (14-36) IU/L ALT 36 H (<35) IU/L Alkaline Phosphatase 62 (38-126) U/L Total Protein 8.0 (6.3-8.2) g/dL Albumin 4.5 (3.5-5.0) g/dL Globulin 3.5 (1.7-4.1) g/dL Albumin/Globulin Ratio 1.3 (1.0-2.8) Lipase 31 (23-300) U/L Imaging Data US - abdomen: Radiologist's Impression: PROCEDURE: US ABDOMEN LIMITED INDICATIONS: RUQ ABD pain eval for GB pathology TECHNIQUE: Real-time scanning was performed of the abdominal and retroperitoneal organs, with image documentation. COMPARISON: [facility], CT, CT ABDOMEN PELVIS W CON, 09/30/2024, 20:49. FINDINGS: Liver: Liver is mildly enlarged measuring 17.2 cm and homogeneous in echotexture. Gallbladder: No gallstones. No wall thickening. No pericholecystic edema. Negative sonographic Bateman's sign. Biliary ducts: Intrahepatic bile ducts are non-dilated. Extrahepatic bile duct caliber measures 4.1 mm. Normal is 6-7 mm or less in diameter, or 10 mm or less post-cholecystectomy. Pancreas: Visualized portions of the pancreas are sonographically normal. Miscellaneous: No free abdominal fluid. IMPRESSION: 1. Mild hepatomegaly. 2. Gallbladder is normal in appearance without gallstones or gallbladder wall thickening. [facility] Narrative Medical decision making narrative: I did review her medical record and she did have a very unremarkable workup just a couple days ago to include a negative CT scan. After Zofran she does feel quite a bit better. Right upper quadrant ultrasound today shows no acute gallbladder pathology she was informed that she can cancel her appointment for tomorrow. She was scheduled to follow up with her primary doctor before the end of the week. Given the lack of a definitive diagnosis I recommended starting on a proton pump inhibitor for the next 2 weeks. Was given examples of these. Will send home with nausea medication as well. She was given return precautions. Discharge Plan Departure Patient Disposition: Home Clinical Impression: Abdominal pain Instructions: DI for Abdominal Pain-Adult Activity Restrictions/Additional Instructions: I do recommend that you keep your scheduled follow-up appointment with your primary doctor. I recommend that you start on a regimen of a medicine for reflux disease. Examples of these would be Nexium/omeprazole/esomeprazole/Prilosec. Return to the emergency department for new or worsening symptoms. Prescriptions: New ondansetron 4 mg tablet,disintegrating 4 mg PO Q6H PRN (Reason: nausea and vomiting) Qty: 10 0RF No Action dextroamphetamine-amphetamine [Adderall] 20 MG tablet 20 mg PO QDAY Qty: 0 dicyclomine 10 mg capsule 10 mg PO BID 7 Days Qty: 14 0RF Referrals: Glenn Clark MD [Primary Care Provider] - Stand Alone Forms: Patient Portal/API/Survey
[2024-10-05 17:00] VITALS: BP 119/67; PULSE 67; O2SAT 100
[2024-10-05 17:01] LABS: Alanine Aminotransferase 36 IU/L (<35); Albumin 4.5 g/dL (3.5-5.0); Albumin Globulin Ratio 1.3 (1.0-2.8); Alkaline Phosphatase 62 U/L (38-126); Aspartate Aminotransferase 31 IU/L (14-36); BUN Creatinine Ratio 13.7 (6-22); Bilirubin Total 1.1 mg/dL (0.2-1.3); Blood Urea Nitrogen 10 mg/dL (7-17); Calcium 9.6 mg/dL (8.4-10.2); Carbon Dioxide 27 mmol/L (22-32); Chloride 105 mmol/L (98-107); Estimated Glomerular Filt Rate > 60 mL/min (>60); Globulin 3.5 g/dL (1.7-4.1); Glucose 117 mg/dL (70-100); HEMOLYSIS < 15 (0-50); Lipase 31 U/L (23-300); Sodium 137 mmol/L (137-145)
[2024-10-05 17:30] VITALS: BP 112/76; PULSE 62; O2SAT 100
[2024-10-05 18:14] VITALS: BP 112/76; PULSE 68; O2SAT 100
== END 2024-10-05 18:14 | disposition home or self-care (01) ==
PROVIDERS: Emergency Provider Emergency Medicine; PCP Family Medicine
DX: R10.11 Right upper quadrant pain (principal); R11.0 Nausea
CPT/HCPCS: 36415; 76705; 80053; 83690; 85025; 96374; 99284; J2405

== ENCOUNTER 2025-01-02 17:19 | Emergency (ER) | payer OTHER, SELFPAY ==
[2025-01-02 17:31] VITALS: BP 123/82; PULSE 73; RESP 16; TEMP 36.5; O2SAT 98; BMI 31.1
--- NOTE | 2025-01-02 17:43 | DI.US.S_ITS ---
PROCEDURE: US PELVIC COMPLETE INDICATIONS: check placement of IUD and check ovaries TECHNIQUE: Real-time scanning was performed of the pelvic organs, with image documentation. Additional endovaginal scanning was necessary due to incomplete visualization of the adnexal and endometrial structures by transabdominal scanning. Color and spectral Doppler of the ovaries was performed. COMPARISON: None. FINDINGS: Uterus: Uterus is anteverted and normal in size at 8.0 x 5.1 x 3.9 cm. The myometrium is homogeneous. The endometrium measures 7 mm combined thickness. IUD appears appropriately positioned within the endometrium. Ovaries: The right ovary measures 2.8 x 2.3 x 1.6 cm, with a calculated ovarian volume of 5 cc. The left ovary measures 5.3 x 5.7 x 3.6 cm, with a calculated ovarian volume of 57 cc. The ovaries have a normal sonographic appearance. Less than 12 follicles can be seen in each ovary. No adnexal masses are seen. Hemorrhagic left ovarian cyst measuring 4.5 x 5.3 x 2.8 cm. Normal blood flow to the ovaries. Other: No pathologic free abdominal or pelvic fluid. IMPRESSION: Hemorrhagic left ovarian cyst measuring 4.5 x 5.3 x 2.8 cm. Normal blood flow to the ovaries. If there is left lower quadrant pain, recommend follow-up in 6-12 weeks per consensus guidelines. IUD appears appropriately positioned within the endometrium. We strive to produce accurate, complete, and clear reports of imaging services. To assist us in improving patient care, this report was composed using standard report templates and voice recognition software. Therefore, it may contain abnormal punctuation, insertions and/or omissions. Occasional wrong-word or sound-alike substitutions may occur. Though we review the report and make efforts to correct it, we do recommend that the report be read carefully in proper context to recognize any text inaccuracies. Dictated by: Carlos Alberto Geronimo M.D. on 01/02/2025 at 18:48 Approved by: Carlos Alberto Geronimo M.D. on 01/02/2025 at 18:50
--- NOTE | 2025-01-02 20:00 | ED.FEMALEGU ---
HPI - Female Genitourinary General Chief complaint: Urogenital-Female Stated complaint: lower ab px Time Seen by Provider: 01/02/25 19:59 Source: patient, RN notes reviewed and old records reviewed Mode of arrival: Ambulatory Limitations: no limitations History of Present Illness HPI Narrative: 24-year-old female history of ovarian cyst, patient states they were sexually active. Were having vaginal intercourse towards the very beginning with the had felt immediate pain. They stopped immediately but patient states pain became quite intense has since improved but is still present. Describes as sort of lower pelvic both sides. They felt sweaty lightheaded has a little bit of tunnel vision but that improved. No vomiting but felt nauseated. No chest pain or shortness of breath. The has not had any other GI or urinary symptoms. No vaginal bleeding, no discharge. Patient notes they do have an IUD in place. They did take some Tylenol which seemed to be helpful. This occurred about 4 hours prior to evaluation. Patient has not had similar issues in the past. Related Data Home Medications Medication Instructions Recorded Confirmed dextroamphetamine-amphetamine 20 20 mg PO QDAY ##0 03/31/1309/21/ mg tablet (Adderall) Previous Rx's Medication Instructions Recorded ondansetron 4 mg disintegrating 4 mg PO Q6H PRN nausea and 10/05/24 tablet vomiting #10 tabs Allergies Allergy/AdvReac Type Severity Reaction Status Date / Time amoxicillin Allergy Severe Difficulty Verified 12/24/23 09:52 Breathing PENICILLIN Allergy Intermediate migraine Uncoded 12/24/23 09:52 Review of Systems Review of Systems ROS Unobtainable: All systems reviewed & are unremarkable except as noted in HPI and below Patient History tobacco type: vaping Exam Narrative Exam Narrative: GENERAL: Alert and oriented x three, mild distress. HEENT: Head normocephalic, atraumatic, EOMI, pupils reactive, face symmetric, moist mucous membranes NECK: Supple, full range of motion CARDIOVASCULAR: Regular rate and rhythm without murmurs, rubs or gallops. RESPIRATORY: Breath sounds equal bilaterally, no wheezes rales or rhonchi. ABDOMEN: Soft, suprapubic tenderness. Normoactive bowel sounds all 4 quadrants. No guarding or rebound, rigidity, no mass : No CVA tenderness. Female: externa vaginal examl normal, no vaginal bleeding, small amount thin discharge, no odor, no cervical motion tenderness, normal speculum exam, patient has some mild adnexal tenderness, no palpable mass. Bimanual exam is otherwise normal, no enlarged or tender uterus. Non-gravid. EXTREMITIES: Normal range of motion, no clubbing or edema. Neurovascularly intact NEUROLOGICAL: Cranial nerves II through XII grossly intact. Moving all extremities SKIN: Warm, dry, no petechiae, no rashes or lesions. Initial Vital Signs Initial Vital Signs: Vital Signs Temperature 97.7 F 01/02/25 17:31 Pulse Rate 73 01/02/25 17:31 Respiratory Rate 16 01/02/25 17:31 Blood Pressure 123/82 01/02/25 17:31 Pulse Oximetry 98 01/02/25 17:31 Oxygen Delivery Method Room Air 01/02/25 17:31 Course Orders Ordered: ED Orders 01/02/25 17:43 pelvic complete Stat 01/02/25 20:39 Genital Culture Stat Discontinued Medications Ketorolac Tromethamine (Ketorolac 30 Mg/Ml Vial) 30 mg IM NOW ONE Stop: 01/02/25 20:11 Last Admin: 01/02/25 20:29 Dose: 30 mg Documented By: SANDIE Vital Signs Vital signs: Vital Signs - 8 hr 01/02/25 20:33 01/02/25 20:33 Pulse Rate 63 Blood Pressure 109/71 Pulse Oximetry 96 MDM - Female Genitourinary Lab Data Labs: Point of Care Testing Test Results Negative Urine Dip Bedside Urine Glucose Negative Bedside Urine Bilirubin - Negative Bedside Urine Ketone - Negative Urine Specific [place] 1.020 Bedside Urine Occult Blood - Negative Bedside Urine pH 6.0 Bedside Urine Protein - Negative Bedside Urine Urobilinogen - Negative Bedside Urine Nitrite - Negative Bedside Urine Leukocytes - Negative Esterase [facility] Narrative Medical decision making narrative: 24-year-old female who developed pelvic during vaginal intercourse. Workup shows IUD is appropriately placed, urine does not show any obvious signs of infection patient does have what appears to be a hemorrhagic left ovarian cyst possibly could be source of her pain. On exam patient has a thin discharge but did just have sexual activity. They relate they are not concerned for STIs. Culture was sent but we will hold off on gonorrhea/chlamydia after discussion with patient. No vaginal trauma appreciated. Point of care urine is negative. Point of care is negative Pelvic ultrasound shows a IUD appropriately positioned no free pathological abdominal or pelvic fluid. Hemorrhagic left ovarian cyst measuring 4.5 x 5.3 x 2.8 cm normal flow to the ovaries recommend follow up in 6-12 weeks per consensus guidelines. Discharge Plan Departure Patient Disposition: Home Clinical Impression: Pelvic pain, Hemorrhagic cyst of left ovary Instructions: DI for Ovarian Cyst Activity Restrictions/Additional Instructions: You do have a hemorrhagic left ovarian cyst these can sometimes cause pain would recommend follow up in 6-12 weeks with repeat ultrasound. You can continue with Tylenol and/or ibuprofen as needed for pain. Please return for fevers, new or worsening abdominal back or flank pain, vomiting, lightheadedness or passing out, new vaginal bleeding, going through more than a pad or tampon an hour or other new or concerning changes. Prescriptions: No Action dextroamphetamine-amphetamine [Adderall] 20 MG tablet 20 mg PO QDAY Qty: 0 ondansetron 4 mg tablet,disintegrating 4 mg PO Q6H PRN (Reason: nausea and vomiting) Qty: 10 0RF Referrals: Glenn Clark MD [Primary Care Provider] - Stand Alone Forms: Patient Portal/API/Survey
[2025-01-02] MEDS: KETOROLAC 30 MG/ML VIAL IM (20:29)
[2025-01-02 20:33] VITALS: BP 109/71; PULSE 63; O2SAT 96
== END 2025-01-02 20:50 | disposition home or self-care (01) ==
PROVIDERS: Emergency Provider Emergency Medicine; PCP Family Medicine
DX: R10.2 Pelvic and perineal pain (principal); N83.202 Unspecified ovarian cyst, left side
CPT/HCPCS: 76830; 76856; 81003; 81025; 87070; 87205; 93975; 96372; 99284; J1885

== ENCOUNTER → 2025-02-13 11:52 | Outpatient (CLI) | payer OTHER, SELFPAY ==
--- NOTE | 2025-02-13 11:53 | DI.US.S_ITS ---
PROCEDURE: US PELVIC COMPLETE INDICATIONS: LEFT OVARIAN CYST TECHNIQUE: Real-time scanning was performed of the pelvic organs, with image documentation. Additional endovaginal scanning was necessary due to incomplete visualization of the adnexal and endometrial structures by transabdominal scanning. COMPARISON: [facility], CT, CT ABDOMEN PELVIS W CON, 09/30/2024, 20:49. [facility], US, US PELVIC COMPLETE, 01/02/2025, 18:06. [facility], US, PELVIC COMPLETE, 09/28/2017, 14:43. FINDINGS: Uterus: Uterus is anteverted and normal in size at 7.1 x 4.9 x 3.4 cm. The myometrium is homogeneous. The endometrium measures 3 mm combined thickness. Abnormal positioning of the intrauterine device is seen. Left side arm may be within the lower uterine segment or partially located within the myometrium. Ovaries: The right ovary measures 2.8 x 2.5 x 1.8 cm, with a calculated ovarian volume of 6.6 cc. The left ovary measures 3.1 x 2.6 x 2.2 cm, with a calculated ovarian volume of 9.3 cc. The ovaries have a normal sonographic appearance. Less than 12 follicles can be seen in each ovary. No adnexal masses are seen. Previously seen left ovarian hemorrhagic cyst has resolved. A simple dominant follicle is seen in the left ovary measuring up to 2.4 cm. Other: No pathologic free abdominal or pelvic fluid. IMPRESSION: 1. Previously seen left ovarian hemorrhagic cyst has resolved. 2. Abnormal positioning of the intrauterine device, with left side arm likely incompletely deployed in the lower uterine segment versus partially located within the myometrium. Approved by: Marlo Moore M.D. on 02/13/2025 at 15:41
== END ==
PROVIDERS: PCP Family Medicine; Referring Provider Family Medicine; Visit Provider Family Medicine
DX: T83.32XA Displacement of intrauterine contraceptive device, initial encounter (principal); N83.202 Unspecified ovarian cyst, left side
CPT/HCPCS: 76830; 76856